=== PATIENT | male | born 1980 | race Caucasian/White ===

== ENCOUNTER → 2019-07-19 15:14 | Outpatient (CLI) | payer OTHER, SELFPAY ==
--- NOTE | ~2019-07-19 | XR_ITS ---
XR hand RT 2V 07/19/2019 16:23 Indication: Right hand pain Procedure: 3 views right hand Comparison: No prior studies for comparison. Findings: There is a nondisplaced fracture right first distal phalanx. Cannot exclude intra-articular extension. Mild soft tissue swelling. No other fracture is identified. No foreign bodies. Impression: 1: Nondisplaced fracture right first distal phalanx with possible intra-articular extension. Reviewed, dictated and finalized at location A. Impression: 1: Nondisplaced fracture right first distal phalanx with possible intra-articul ar extension.
== END ==
PROVIDERS: PCP Internal Medicine; Visit Provider Internal Medicine
DX: S62.524A Nondisplaced fracture of distal phalanx of right thumb, initial encounter for closed fracture (principal)
CPT/HCPCS: 73120

== ENCOUNTER 2020-09-06 13:00 | Outpatient (RCR) | payer OTHER, SELFPAY ==
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
--- NOTE | 2020-08-02 09:20 | PCPTNOTE ---
Patient did not show up for scheduled appointment this date. Called and spoke with Pt, He stated he over slept and was feeling run down after his second COVID19 vaccination. Reminded Pt of upcoming appointment on Thursday08/07/20 at 11:00am. This is Pt's first No-show.
--- NOTE | 2020-08-17 11:48 | PTOPEVAL ---
PHYSICAL THERAPY RE-EVALUATION AND UPDATED PLAN OF CARE 08-17-20 Refer to the clinical summary for his status with today's reeval, compared to the initial evaluation. Thank you for referring Abrahan Guerrero Jr. to [facility].? Abrahan is scheduled to be seen for therapy? 2 x/week for 3 weeks. Please review, sign, date and return this updated plan of care PRESTON. I agree with and certify that the following plan of care is medically necessary. Referring Physician Date Attending Provider: Wagner Hinojosa DO *PT Outpatient Re-Evaluation Document 08/17/20 11:00 ADÁN (Rec: 08/17/20 11:48 ADÁN [id number]) Subjective Information Abrahan reports: therapy has Query Text:As Reported By Patient/ been great-more confident in Family what I can do and how use L arm; exercises and moving arm better; able to cut it down from getting worse pain; Pain Assessment Timing of Pain Assessment Timing of Pain Assessment Assessment Pain Scale Pain Scale Used Numeric (1 - 10) Self Report Pain Assessment Left Spine, Thoracic Reported Pain Level 3 Pain Description Tightness Radicular Pain Location not have s/s into L hand/arm; low grade headache- intermittent-base skull 95% Pain Frequency Chronic,Continuous Other Pain Description hot, swollen on L side neck/ shoulder;L upper traps, posterior shoulder/scap Lowest Pain Intensity 0 Greatest Pain Intensity 4 Pain Aggravating Factors Exercise/Activity Other Pain Aggravating Factors being in bad posture; Additional Pain Comments have sinus issues also Pain Score Pain Score 3: Self Report Additional Pain Score Comments Oswestry self assessment functional score 24% limitation; leukotape strips R and L upper traps> thoracic paraspinals; instruct to monitor skin- slight redness at R upper area of tape, so started more distal placement today Interventions Used Interventions Used By Clinicians Education,Exercise,Taping Pain Relief Interventions Used By Exercise,Heat Patient Other Alleviating Interventions tape helped; hot shower; Cervical and Lumbar ROM Cervical ROM Cervical ROM Comments cervical active ROM rotation R /L ~ 80' with reports of tighter with rotation R; extension/ flexion- little
--- NOTE | 2020-08-30 11:43 | PCPTNOTE ---
Patient called and left a voicemail. Patient states he will not be able to make it today and that he is sorry however did not give anymore information.
--- NOTE | 2020-09-06 13:43 | PTOPEVAL ---
PHYSICAL THERAPY DISCHARGE 09-06-20 Refer to the clinical summary below for his status with today's reeval, compared to the last reeval. The goals were partially achieved. He is to continue with his home exercises. Thank you for referring Abrahan Perez Yolanda Masters to [facility].? Please review, sign, date and return this Discharge report PRESTON. I agree with and certify that the following plan of care is medically necessary. Referring Physician Date Attending Provider: Wagner Hinojosa DO Document 09/06/20 13:05 ADÁN (Rec: 09/06/20 13:42 ADÁN [id number]) Assessment Status Discharge Subjective Information Abrahan reports: headaches are Query Text:As Reported By Patient/ less, no longer constant; no Family longer have the nerve pinch feeling; good posture keeps it from hurting; size of knots is less; is doing all the exercises and correcting my posture; agree to d/c from PT; Pain Assessment Timing of Pain Assessment Timing of Pain Assessment Assessment Pain Scale Pain Scale Used Numeric (1 - 10) Self Report Pain Assessment Left Spine, Thoracic Reported Pain Level 2 Pain Description Spasms,Tightness,Tingling Radicular Pain Location fist- ponted to upper traps L; Pain Frequency Chronic,Intermittent Other Pain Description had 3 week stretch of NO headaches; but low grade headache today; Lowest Pain Intensity 0 Greatest Pain Intensity 3 Additional Pain Comments headaches tend to occur after working outside and ,more activity; Pain Score Pain Score 2: Self Report Additional Pain Score Comments Oswestry self assessment functional score of 22% limitation; have ordered a theracane for pressure point; at desk, have new chair for posture when using the computer; discussed pain management techniques: heat, stretching, activity balance, posture, self massage with theracane or occipital release tools; muscle cream/ CBD oils he is using; home electrical stim unit- is not interested in home stim; Interventions Used Interventions Used By Clinic
== END 2020-09-07 09:20 | disposition home or self-care (01) ==
LOC: ANHPT 13:00
PROVIDERS: PCP Internal Medicine; Visit Provider Internal Medicine
DX: M54.9 Dorsalgia, unspecified (principal)
CPT/HCPCS: 97014; 97110; 97140; 97161; G0283

== ENCOUNTER → 2020-10-30 02:12 | Outpatient (CLI) | payer OTHER, SELFPAY ==
[2020-10-30 17:39] LABS: SARS-CoV-2 RNA PCR Negative
== END ==
PROVIDERS: PCP Internal Medicine; Visit Provider Internal Medicine
DX: R68.89 Other general symptoms and signs (principal); Z20.822 Contact with and (suspected) exposure to COVID-19
CPT/HCPCS: C9803; U0003; U0005

== ENCOUNTER 2022-03-10 18:21 | Emergency (ER) | payer OTHER, SELFPAY ==
[2022-03-10 18:26] VITALS: BP 130/97; PULSE 99; RESP 20; TEMP 36.9; O2SAT 100
--- NOTE | 2022-03-10 18:44 | ED.URI ---
HPI - URI/Sore Throat General Chief Complaint: Upper Respiratory Infection Stated Complaint: allergy problems Time Seen by Provider: 03/10/22 18:35 Source: patient, RN notes reviewed and old records reviewed Mode of arrival: ambulatory Limitations: no limitations History of Present Illness HPI Narrative: 41 year old male presents to [facility] care with complaints of having some sinus drainage for the past 1 week duration. Patient reports that he started to have some bloody drainage from his nares on Thursday when he blew his nose and also today. Patient reports that he has some sinus pressure to his face denies any known fevers, chills or sweats, denies any sore throat or ear pain or acute cough. MD elicited complaint: cough, rhinorrhea and nasal congestion Pertinent past history: other (tonsil abscess) Onset (ago): week(s) (1) Pain scale (0-10): 4 Able to tolerate fluids by mouth: Yes Treatments prior to arrival: none Related Data Home Medications Medication Instructions Recorded Confirmed sildenafil 50 mg tablet (Viagra) 50 mg PO DAILY PRN . 02/01/20 03/03/22 triamcinolone acetonide 0.1 % 1 applic topical BID 02/01/20 03/03/22 topical cream hydroxyzine pamoate 25 mg capsule 25 mg PO BID PRN hives 02/06/22 03/03/22 (Vistaril) Allergies Allergy/AdvReac Type Severity Reaction Status Date / Time No Known Allergies Allergy Verified 03/03/22 09:45 Review of Systems Review of Systems: CONSTITUTIONAL: Denies malaise, chills, sweats, or fever. EYES: Denies visual changes, redness, or discharge. ENT: Reports rhinorrhea, congestion, sinus pain, no otalgia and sore throat. CARDIOVASCULAR: Denies chest pain, palpitations, or edema. RESPIRATORY: Reports cough.? Denies dyspnea. GASTROINTESTINAL: Denies abdominal pain, nausea, vomiting, diarrhea SKIN: Denies rash or itching. MUSCULOSKELETAL: Denies myalgia. NEUROLOGIC: Denies headache. All systems reviewed & are unremarkable except as noted in HPI and below PMFSH Past Medical History Medical History Pinched nerve Family History Family History Other Diabetes mellitus Family history of cardiovascular disease Family history of gout Hypertension Social History Social History Smoking packs per day: 1 Smoking cigarettes per day: 20.0 Years smoked: 15 Smoking pack-years: 15.00 Smoking status: Current every day smoker (cigars) Tobacco type: e-cigarettes/vaping Second hand tobacco smoke exposure: No Smoking end date: 08/08/09 Alcohol intake: current Drinks per week: 6 Substance use: current Substance use type: marijuana Other substance usage details: Edibles/Cannabis daily Lack of Transportation: No Lack of Food: Sometimes True Current Housing: I Have Housing Concerned About Future Housing: Decline to Answer Difficulty Paying Gas/Electric Bills: Decline to Answer Difficulty Paying for Meds: YES Currently Unemployed: Decline to Answer Education: Bachelor's Degree Difficulty w/ Childcare or Family Care: YES Spiritual care concerns: No Comments At time of signature, agree with nursing past medical, surgical, social and family history. There is no relevant family history pertinent to the presenting complaint Exam Narrative: GENERAL: Well-appearing, well-nourished, and in no acute distress. HEAD: Normocephalic EYES: PERRLA, conjunctivae clear ENT: Nares swollen, turbinates edematous and erythematous, clear discharge. Mucous membranes moist. TM pearly ruffin with dull light reflex bilaterally; no tragal tenderness. Oropharynx erythematous without lesions. Tonsils not enlarged and without exudate, no drooling, no hoarseness, no trismus, uvula midline.post nasal drainage NECK: Supple. No lymphadenopathy CHEST: Clear to auscultation, breath so
== END 2022-03-10 18:52 | disposition home or self-care (01) ==
PROVIDERS: Emergency Provider Registered Nurse; PCP Internal Medicine
DX: J32.9 Chronic sinusitis, unspecified (principal); F12.90 Cannabis use, unspecified, uncomplicated
CPT/HCPCS: 99213; G0463

== ENCOUNTER 2022-03-21 02:06 | Day surgery (SDC) | payer OTHER, SELFPAY ==
[2022-03-03 09:50] VITALS: BMI 29.2
--- NOTE | 2022-03-06 20:36 | PM.HPGS ---
History of Present Illness History of Present Illness Consent: Risks, benefits, and alternatives have been discussed and questions answered. Patient agrees to proceed with procedure. Chief complaint: rectal bleed Narrative: Abrahan Guerrero Jr. is a 41 year old male who Reports rectal bleeding for at least 6 months.? rectal bleeding occurs with 1/3 of his bowel movements. About 50% of the time he has pain with bowel movements but not every time. blood is bright red in color, and will have blood in toilet. PMFSH Past Medical History Medical History Pinched nerve Family History Family History Other Diabetes mellitus Family history of cardiovascular disease Family history of gout Hypertension Social History Social History Smoking packs per day: 1 Smoking cigarettes per day: 20.0 Years smoked: 15 Smoking pack-years: 15.00 Smoking status: Current every day smoker (cigars) Tobacco type: e-cigarettes/vaping Second hand tobacco smoke exposure: No Smoking end date: 08/08/09 Alcohol intake: current Drinks per week: 6 Substance use: current Substance use type: marijuana Other substance usage details: Edibles/Cannabis daily Lack of Transportation: No Lack of Food: Sometimes True Current Housing: I Have Housing Concerned About Future Housing: Decline to Answer Difficulty Paying Gas/Electric Bills: Decline to Answer Difficulty Paying for Meds: YES Currently Unemployed: Decline to Answer Education: Bachelor's Degree Difficulty w/ Childcare or Family Care: YES Living arrangements: alone Spiritual care concerns: No Meds Home Medications and Allergies Home Medications Medication Instructions Recorded Confirmed Type sildenafil 50 mg tablet (Viagra) 50 mg PO DAILY PRN . 02/01/20 03/03/22 History triamcinolone acetonide 0.1 % 1 applic topical BID 02/01/20 03/03/22 History topical cream omeprazole 20 mg capsule,delayed 20 mg PO DAILY #30 caps 02/09/20 03/03/22 Rx release metoprolol succinate 50 mg See Rx Instructions .Route 10/10/21 03/03/22 Rx tablet,extended release 24 hr .COMPLEX #90 tabs promethazine 25 mg tablet 25 mg PO .COMPLEX #90 tabs 10/10/21 03/03/22 Rx fenofibrate 160 mg tablet See Rx Instructions .Route 11/08/21 03/03/22 Rx .COMPLEX #90 tabs atorvastatin 10 mg tablet See Rx Instructions .Route 01/22/22 03/03/22 Rx .COMPLEX #90 tabs diazepam 5 mg tablet (Valium) 5 mg PO BID PRN muscle spasm #30 01/22/22 03/03/22 Rx tabs hydroxyzine pamoate 25 mg capsule 25 mg PO BID PRN hives 02/06/22 03/03/22 History (Vistaril) Allergies Allergy/AdvReac Type Severity Reaction Status Date / Time No Known Allergies Allergy Verified 03/03/22 09:45 Assessment and Plan Assessment and plan (1) Rectal bleeding: Code(s): K62.5 - Hemorrhage of anus and rectum Status: Acute Assessment and Plan: Colonoscopy with possible biopsy or polypectomy or cautery or injection of substances.
--- NOTE | 2022-03-10 13:07 | PC.NURSE ---
Patient states there are no changes in health history since last interview. Updated to new arrival date and time. States he will call office if he cant find his instruction sheet.
--- NOTE | 2022-03-20 14:06 | PM.HPGS ---
History of Present Illness History of Present Illness Consent: Risks, benefits, and alternatives have been discussed and questions answered. Patient agrees to proceed with procedure. Chief complaint: rectal bleed Narrative: Abrahan Guerrero Jr. is a 41 year old male Referred ?for evaluation of rectal bleeding. ? Reports rectal bleeding for at least 6 months.? rectal bleeding occurs with 1/3 of his bowel movements. About 50% of the time he has pain with bowel movements but not every time.? Review of Systems Review of Systems: All systems reviewed & are unremarkable except as noted in HPI and below PMFSH Past Medical History Medical History Benign essential hypertension Chronic GERD History of electroconvulsive therapy Hyperlipidemia Pinched nerve Post traumatic stress disorder (PTSD) Seizure possibly during ECT treatment Family History Family History Other Diabetes mellitus Family history of cardiovascular disease Family history of gout Hypertension Social History Social History Smoking packs per day: 1 Smoking cigarettes per day: 20.0 Years smoked: 15 Smoking pack-years: 15.00 Smoking status: Current every day smoker (cigars) Tobacco type: e-cigarettes/vaping Second hand tobacco smoke exposure: No Smoking end date: 08/08/09 Alcohol intake: current Drinks per week: 6 Substance use: current Substance use type: marijuana Other substance usage details: Edibles/Cannabis daily Lack of Transportation: No Lack of Food: Sometimes True Current Housing: I Have Housing Concerned About Future Housing: Decline to Answer Difficulty Paying Gas/Electric Bills: Decline to Answer Difficulty Paying for Meds: YES Currently Unemployed: Decline to Answer Education: Bachelor's Degree Difficulty w/ Childcare or Family Care: YES Living arrangements: alone Spiritual care concerns: No Meds Home Medications and Allergies Home Medications Medication Instructions Recorded Confirmed Type sildenafil 50 mg tablet (Viagra) 50 mg PO DAILY PRN . 02/01/20 03/03/22 History triamcinolone acetonide 0.1 % 1 applic topical BID 02/01/20 03/03/22 History topical cream omeprazole 20 mg capsule,delayed 20 mg PO DAILY #30 caps 02/09/20 03/03/22 Rx release metoprolol succinate 50 mg See Rx Instructions .Route 10/10/21 03/03/22 Rx tablet,extended release 24 hr .COMPLEX #90 tabs promethazine 25 mg tablet 25 mg PO .COMPLEX #90 tabs 10/10/21 03/03/22 Rx fenofibrate 160 mg tablet See Rx Instructions .Route 11/08/21 03/03/22 Rx .COMPLEX #90 tabs atorvastatin 10 mg tablet See Rx Instructions .Route 01/22/22 03/03/22 Rx .COMPLEX #90 tabs diazepam 5 mg tablet (Valium) 5 mg PO BID PRN muscle spasm #30 01/22/22 03/03/22 Rx tabs hydroxyzine pamoate 25 mg capsule 25 mg PO BID PRN hives 02/06/22 03/03/22 History (Vistaril) Allergies Allergy/AdvReac Type Severity Reaction Status Date / Time No Known Allergies Allergy Verified 03/21/22 07:53 Exam Resp: Auscultation: clear to auscultation bilaterally Cardio: Rate: regular rate Rhythm: regular rhythm GI: GI Palp: Yes Soft to palpation and No Tenderness to palpation present (GI) Assessment and Plan Assessment and plan (1) Rectal bleeding: Code(s): K62.5 - Hemorrhage of anus and rectum Status: Acute Assessment and Plan: Colonoscopy with possible biopsy or polypectomy or cautery or injection of substances.
[2022-03-21 07:56] VITALS: BP 144/94; PULSE 85; RESP 20; TEMP 36.3; O2SAT 100
[2022-03-21] MEDS: LACTATED RINGERS 1,000 ML 150 ML IV CONT (08:06)
--- NOTE | 2022-03-21 08:06 | WPDANESEPPF ---
Anes - Initial Pre Proc Eval Procedure: Operation Date: 03/21/22 09:00 Proposed Procedures p Colonoscopy - Luis Felipe Zurita MD Date/Time: 03/21/22 08:06 Surgeon: Luis Felipe Zurita MD Pre Op Diagnosis: rectal bleed Patient Data Age: 41 Gender: M Height: 1.8 m Weight: 99 kg Last Vital Signs Temp 36.3 C L 03/21/22 07:56 Pulse 85 03/21/22 07:56 Resp 20 03/21/22 07:56 BP 144/94 H 03/21/22 07:56 Pulse Ox 100 03/21/22 07:56 O2 Del Method Room Air 03/21/22 07:56 Allergies Allergy/AdvReac Type Severity Reaction Status Date / Time No Known Allergies Allergy Verified 03/21/22 07:53 Home Medications Medication Instructions Recorded Confirmed Type sildenafil 50 mg tablet (Viagra) 50 mg PO DAILY PRN . 02/01/20 03/03/22 History triamcinolone acetonide 0.1 % 1 applic topical BID 02/01/20 03/03/22 History topical cream omeprazole 20 mg capsule,delayed 20 mg PO DAILY #30 caps 02/09/20 03/03/22 Rx release metoprolol succinate 50 mg See Rx Instructions .Route 10/10/21 03/03/22 Rx tablet,extended release 24 hr .COMPLEX #90 tabs promethazine 25 mg tablet 25 mg PO .COMPLEX #90 tabs 10/10/21 03/03/22 Rx fenofibrate 160 mg tablet See Rx Instructions .Route 11/08/21 03/03/22 Rx .COMPLEX #90 tabs atorvastatin 10 mg tablet See Rx Instructions .Route 01/22/22 03/03/22 Rx .COMPLEX #90 tabs diazepam 5 mg tablet (Valium) 5 mg PO BID PRN muscle spasm #30 01/22/22 03/03/22 Rx tabs hydroxyzine pamoate 25 mg capsule 25 mg PO BID PRN hives 02/06/22 03/03/22 History (Vistaril) Patient hx anesthesia problems: none Family hx anesthesia problems: none Results Review: All pre-operative results and documents have been reviewed as part of the pre-operative evaluation. [facility] Past Medical History Medical History (Updated 03/20/22 @ 08:34 by Miah Gilliam DO) Benign essential hypertension Chronic GERD History of electroconvulsive therapy Hyperlipidemia Pinched nerve Post traumatic stress disorder (PTSD) Seizure possibly during ECT treatment Family History Family History Other Diabetes mellitus Family history of cardiovascular disease Family history of gout Hypertension Social History Social History Smoking packs per day: 1 Smoking cigarettes per day: 20.0 Years smoked: 15 Smoking pack-years: 15.00 Smoking status: Current every day smoker (cigars) Tobacco type: e-cigarettes/vaping Second hand tobacco smoke exposure: No Smoking end date: 08/08/09 Alcohol intake: current Drinks per week: 6 Substance use: current Substance use type: marijuana Other substance usage details: Edibles/Cannabis daily Lack of Transportation: No Lack of Food: Sometimes True Current Housing: I Have Housing Concerned About Future Housing: Decline to Answer Difficulty Paying Gas/Electric Bills: Decline to Answer Difficulty Paying for Meds: YES Currently Unemployed: Decline to Answer Education: Bachelor's Degree Difficulty w/ Childcare or Family Care: YES Living arrangements: alone Spiritual care concerns: No Anes - Eval Final PreProcedure Day of Procedure 03/21/22 08:06 Patient weight: obese Heart: regular rate and rhythm Lungs: clear to auscultation Airway: Mallampati scale class II Neurological: alert and oriented Last oral intake: >/= 8 hours ASA classification: III Emergent: no Anesthetic plan: proceed Anesthesia type and monitoring: general GIVS and standard monitoring Results Review: All pre-operative results and documents have been reviewed as part of the pre-operative evaluation. Informed Consent: The patient's anesthetic plan and its attendant risks and benefits were discussed with the patient/family/POA. Questions were solicited and answers provided to the satisfaction of the patient/family/POA.
[2022-03-21 09:03] VITALS: BP 88/52; PULSE 79; RESP 14; O2SAT 96
[2022-03-21 09:13] VITALS: BP 101/69; PULSE 76; RESP 20; O2SAT 97
[2022-03-21 09:23] VITALS: BP 119/86; PULSE 84; RESP 22; O2SAT 98
== END 2022-03-21 09:39 | disposition home or self-care (01) ==
PROVIDERS: PCP Internal Medicine; Visit Provider Internal Medicine Gastroenterology
PROC: 0DJD8ZZ Inspection of Lower Intestinal Tract, Via Natural or Artificial Opening Endoscopic (ICD-10-PCS; CPT 45378; principal; 2022-03-21 09:00)
DX: K92.1 Melena (principal); K64.8 Other hemorrhoids; K21.9 Gastro-esophageal reflux disease without esophagitis; E78.5 Hyperlipidemia, unspecified; I10 Essential (primary) hypertension; F43.10 Post-traumatic stress disorder, unspecified; F17.290 Nicotine dependence, other tobacco product, uncomplicated; F12.90 Cannabis use, unspecified, uncomplicated; E66.9 Obesity, unspecified; Z68.30 Body mass index [BMI] 30.0-30.9, adult
CPT/HCPCS: 45378; J2704; J7120